=== PATIENT | female | born 1975 ===

== ENCOUNTER 2017-09-21 10:27 | Day surgery (SDC) | payer BC ==
[2017-09-06 13:36] VITALS: BMI 22.2
[2017-09-21 12:03] LABS: BASO % 0.9 % (0.0-2.0); EOS # 0.1 K/uL (0.0-0.7); HEMOGLOBIN 13.3 g/dL (12.0-16.0); LYMPH # 2.3 K/uL (1.0-4.3); LYMPH % 43.2 % (20.0-40.0); MEAN CELL VOLUME 87.8 fl (81.0-99.0); MEAN CORPUSCULAR HEMOGLOBIN 30.1 pg (27.0-31.0); MEAN CORPUSCULAR HGB CONC 34.2 g/dL (33.0-37.0); MEAN PLATELET VOLUME 8.4 fl (7.2-11.7); MONO # 0.5 K/uL (0.0-0.8); MONO % 9.5 % (0.0-10.0); NEUT # 2.3 K/uL (1.8-7.0); NEUT % 44.4 % (50.0-75.0); NRBC % 0.1 % (0.0-0.0); RBC 4.43 Mil/uL (3.80-5.20); RED CELL DISTRIBUTION WIDTH 13.1 % (11.5-14.5); WHITE BLOOD COUNT 5.2 K/uL (4.8-10.8)
[2017-09-21] MEDS ORDERED: Lactated Ringer's 1,000 ML IV ONE ×2 (12:21→14:50)
[2017-09-21 12:26] VITALS: RESP 18
[2017-09-21] MEDS ORDERED: Midazolam 2 MG/2 ML VIAL ONE (13:40)
[2017-09-21] MEDS ORDERED: Propofol 10 mg/ml Inj (20 ML) ONE (13:40)
[2017-09-21] MEDS ORDERED: Dexamethasone 4 mg/1 ml ONE (13:42)
[2017-09-21] MEDS ORDERED: ePHEDrine 50 mg/ml Inj ONE (14:14)
[2017-09-21] MEDS ORDERED: Succinylcholine 200 mg/10 ml Inj IV ONE (14:17)
[2017-09-21] MEDS ORDERED: Sevoflurane - Inhalation Anesthetic Liq (250 ml) ONE (14:23)
[2017-09-21] MEDS ORDERED: HYDROmorphone 0.5 mg/0.5 ml ISec IVP PRN (15:01)
[2017-09-21] MEDS ORDERED: Lactated Ringer's 1,000 ML IV SCH (15:15)
[2017-09-21 16:20] VITALS: O2SAT 100
[2017-09-21 16:21] VITALS: BP 103/61; PULSE 50; TEMP 98
--- NOTE | 2017-09-22 23:07 | OP ---
PROCEDURE DATE: 09/21/2017 PREOPERATIVE DIAGNOSIS: Abnormal uterine bleeding. POSTOPERATIVE DIAGNOSIS: Abnormal uterine bleeding, pending pathology. SURGEON: Anders Bennett MD. ANESTHESIA ADMINISTRATED BY: Shirin Rivero M.D. ANESTHESIA: General anesthesia. PROCEDURE: Hysteroscopy with MyoSure and dilatation and curettage. DESCRIPTION OF PROCEDURE: With the patient in the dorsal lithotomy position under general anesthesia, the patient was prepped and draped in the usual sterile manner. A straight cath was used to empty the bladder after which a weighted speculum was placed in the posterior vagina. Cervix was grasped anteriorly and dilated. The process was started where the hysteroscope was introduced visualizing a fairly large amount of hyperplastic tissue. The MyoSure was done after which the D and C was also done maintaining tissue. This was sent to pathology for evaluation. Hemostasis was observed. The patient tolerated the procedure well and was in satisfactory condition on her way to recovery room. Anders Bennett MD
== END 2017-09-21 17:00 | disposition home or self-care (01) ==
LOC: H.OPSURG 10:27
PROVIDERS: ATTEND Specialist
DX: N93.9 Abnormal uterine and vaginal bleeding, unspecified (principal)
CPT/HCPCS: 36415; 58558; 85025; 88305; J0330; J1100; J1885; J2250; J2405; J2704; J2765; J3010; J7030; J7120